=== PATIENT | female | born 1950 | race Caucasian/White ===

== ENCOUNTER 2016-10-30 15:20 | Emergency (ER) | payer MEDICARE, OTHER ==
[~2016-10-30] VITALS: Ht 160 cm; Wt 109.0 kg
[~2016-10-30 15:20] MED LIST: ALLERGY RELIEF25 M3 PO; ASPIRIN81 M1 PO; CALCIUM500 MG PO; COUMADIN2.5 MG PO; FISH OIL1 CAP PO; LISINOPRIL20 M1 PO; LISINOPRIL20 MG PO; MELOXICAM15 M1 PO; MELOXICAM15 MG PO; MONTELUKAST SOD10 M2 PO; MULTIPLE VITAM1 EAC3 PO; MULTIPLE VITAM1 EACH PO; MULTIVITAMINS1 EAC1 PO; MUPIROCIN22 G2 TOP; OMEGA-3 KRILL1 EAC2 PO; PERCOCET 5/3251 TAB PO; ROXICODONE5 M2 PO; SINGULAIR10 M1 PO; SINGULAIR10 MG PO; TYLENOL325 M2 PO; ULTRAM50 M1 PO; VITAMIN B1250 MCG PO; VITAMIN D1000 UNIT PO; ZOFRAN4 M2 PO; [UNRECOGNIZED DRUG - REMARK] PO
[2016-10-30] MEDS ORDERED: ULTRAM50 M1 PO (18:07)
== END 2016-10-30 18:20 ==
LOC: EDMED 15:20
DX: S80.02XA Contusion of left knee, initial encounter (principal); S70.02XA Contusion of left hip, initial encounter; I10 Essential (primary) hypertension; Z88.2 Allergy status to sulfonamides; Z98.890 Other specified postprocedural states; W01.0XXA Fall on same level from slipping, tripping and stumbling without subsequent striking against object, initial encounter; Y92.009 Unspecified place in unspecified non-institutional (private) residence as the place of occurrence of the external cause